=== PATIENT | male | born 1990 | race Two or more races ===

== ENCOUNTER 2023-10-09 17:42 | Emergency (ER) | payer OTHER ==
[~2023-10-09] VITALS: Ht 177.8 cm; Wt 115.6 kg
[2023-10-09] MEDS: LIDOcaine 1% W/epiNEPHrine 1:100,000 20ml vial IJ ONE (18:29)
[2023-10-09] MEDS: TETanus/Pertussis (Acell)/Diphther VAC/PF (Tdap-Adult) 0.5ml syringe IMVAC ONE (19:11)
[2023-10-09 19:32] VITALS: BP 144/100; PULSE 95; RESP 17; TEMP 98.6; O2SAT 96
== END 2023-10-09 19:30 | disposition home or self-care (01) ==
LOC: ER 17:42
DX: S61.412A Laceration without foreign body of left hand, initial encounter (principal); W45.8XXA Other foreign body or object entering through skin, initial encounter; Y93.89 Activity, other specified; Y92.89 Other specified places as the place of occurrence of the external cause; Y99.8 Other external cause status
CPT/HCPCS: 12002; 90471; 90715; 99283; J7030; A6258; A6449

== ENCOUNTER 2023-10-10 14:57 | Emergency (ER) | payer OTHER ==
[~2023-10-10] VITALS: Ht 177.8 cm; Wt 118.2 kg
[2023-10-10 15:35] VITALS: BP 118/82; PULSE 70; RESP 16; TEMP 98.3; O2SAT 98
== END 2023-10-10 15:37 | disposition home or self-care (01) ==
LOC: ER 14:57
DX: S61.211D Laceration without foreign body of left index finger without damage to nail, subsequent encounter (principal); X58.XXXD Exposure to other specified factors, subsequent encounter
CPT/HCPCS: 99281; J7030